=== PATIENT | female | born 1970 | race Caucasian/White ===

== ENCOUNTER 2021-08-23 19:08 | Emergency (ER) | payer OTHER ==
[2021-08-23 19:51] LABS: RED BLOOD COUNT 4.44 M/UL (4.00-5.10); WHITE BLOOD COUNT 9.1 K/UL (4.5-11.0)
[2021-08-23 20:12] LABS: BUN/CREATININE RATIO 14 (0-10)
[2021-08-23] MEDS ORDERED: DIFLUCAN150 MG PO (23:18)
[2021-08-23] MEDS ORDERED: TORADOL 10 MG T10 MG PO (23:18)
[2021-08-23] MEDS ORDERED: CEPHALEXIN500 M1 PO (23:18)
[2021-08-23] MEDS ORDERED: ONDANSETRON ODT4 MG SL (23:18)
[2021-08-23] MEDS ORDERED: FLOMAX 0.4 MG0.4 MG PO (23:18)
== END 2021-08-23 23:43 | disposition home or self-care (01) ==
LOC: ER1 19:08
PROVIDERS: Physician Assistant Medical
DX: N13.2 Hydronephrosis with renal and ureteral calculous obstruction (principal); E11.9 Type 2 diabetes mellitus without complications; Z90.710 Acquired absence of both cervix and uterus; Z88.0 Allergy status to penicillin; Z91.041 Radiographic dye allergy status; Z79.899 Other long term (current) drug therapy
CPT/HCPCS: 80053; 81001; 85025; 87086; 96374; 96375; 96376; 99284; J1885; J2270; J2405; Q9967